=== PATIENT | male | born 1945 | race Two or more races ===

== ENCOUNTER 2019-07-19 07:15 | Outpatient (CLI) | payer OTHER | END 2019-07-19 07:28 | disposition home or self-care (01) | LOC: NUCLEAR 07:15 | DX: E05.00 Thyrotoxicosis with diffuse goiter without thyrotoxic crisis or storm (principal) | CPT/HCPCS: 78012; A9531 ==

== ENCOUNTER 2019-07-20 08:14 | Outpatient (CLI) | payer OTHER | END 2019-07-20 08:20 | disposition home or self-care (01) | LOC: NUCLEAR 08:14 | DX: E05.00 Thyrotoxicosis with diffuse goiter without thyrotoxic crisis or storm (principal) | CPT/HCPCS: 78013; A9512 ==